=== PATIENT | male | born 2000 | race American Indian/Alaskan Native ===

== ENCOUNTER 2020-08-19 17:40 | Emergency (ER) | payer SELFPAY ==
--- NOTE | 2020-08-19 17:47 | Event Note ---
ED Screening Note ED Screening Note: PAINFUL URINATION This initial assessment/diagnostic orders/clinical plan/treatment(s) is/are subject to change based on patients health status, clinical progression and re- assessment by fellow clinical providers in the ED. Further treatment and workup at subsequent clinical providers discretion. Patient/guardian urged not to elope from the ED as their condition may be serious if not clinically assessed and managed. Initial orders include:
[2020-08-19 17:48] VITALS: BP 147/97
--- NOTE | 2020-08-19 17:56 | Emergency Department Report ---
ED Dysuria HPI - HPI Chief Complaint: Urogenital-Male Stated Complaint: PAINFUL URINE Time Seen by Provider: 08/19/20 17:46 Duration: 3 Days Severity: Mild Symptoms: Dysuria: Yes, Frequency: No, Suprapubic Pain: No, Flank Pain: No, Fever: No, Hematuria: No, Abdominal Pain: No, Previous UTI's: No Other History: 20 yo male comes to ER with dysuria and penile discharge. No fever or chills. No back pain. No abd pain. He is concerned for STI. No testicular pain. No penile lesions. Numeous sexual partners - women - unprotected. ED Review of Systems ROS: Stated complaint: PAINFUL URINE Other details as noted in HPI Comment: All other systems reviewed and negative ED Past Medical Hx - Past Medical History Previous Medical History?: No - Surgical History Past Surgical History?: No - Family History Family history: no significant - Social History Smoking Status: Current Every Day Smoker Substance Use Type: None Dysuria Exam - Exam General: Vital signs noted. No distress. Alert and acting appropriately. Exam: Yes Moist Mucous Membranes, No CVA Tenderness, No Abdominal Tenderness, No Rigidity or Guarding ED Course Vital Signs 08/19/20 17:46 Temperature 98.1 F Pulse Rate 91 H Respiratory 22 Rate Blood Pressure 147/97 O2 Sat by Pulse 100 Oximetry ED Medical Decision Making - Medical Decision Making empiric treatment with rocephin and azithro ua and GC pending dc home with dc plan of care. Pt educated on safe sex. Vital Signs 08/19/20 17:46 Temperature 98.1 F Pulse Rate 91 H Respiratory 22 Rate Blood Pressure 147/97 O2 Sat by Pulse 100 Oximetry - Differential Diagnosis sti Critical care attestation.: If time is entered above; I have spent that time in minutes in the direct care of this critically ill patient, excluding procedure time. ED Disposition Clinical Impression: Concern about STD in male without diagnosis Disposition: DC-01 TO HOME OR SELFCARE Is pt being admited?: No Does the pt Need Aspirin: No Condition: Stable Instructions: Safe Sex Additional Instructions: safe sex Referrals: LEONOR SHRESTHA MD [Staff Physician] - 3-5 Days Time of Disposition: 17:58
[2020-08-19] MEDS ORDERED: AZITHROMYCIN 250 MG TAB PO ONE (17:58)
[2020-08-19] MEDS ORDERED: LIDOCAINE-MPF (1%) 10 MG/1 ML VIAL 5 ML INFILTRATI ONE (17:58)
[2020-08-19 18:26] LABS: Bacteria,Urine 1+ /HPF (Negative); Bilirubin,Urine NEG (Negative); Blood,Urine NEG (Negative); Color,Urine Yellow (Yellow); Mucus,Urine FEW /HPF; Protein,Urine <15 mg/dL mg/dL (Negative)
== END 2020-08-19 18:48 | disposition home or self-care (01) ==
LOC: ED 17:40
DX: R30.0 Dysuria (principal); F17.200 Nicotine dependence, unspecified, uncomplicated; Z20.2 Contact with and (suspected) exposure to infections with a predominantly sexual mode of transmission
CPT/HCPCS: 81001; 87086; 87591; 96372; 99283; J0696

== ENCOUNTER 2021-05-06 09:29 | Emergency (ER) | payer MEDICAID ==
[2021-05-06 09:34] VITALS: BP 131/78
--- NOTE | 2021-05-06 09:51 | Emergency Department Report ---
- General Chief complaint: Urogenital-Male Stated complaint: BUMPS Time Seen by Provider: 05/06/21 09:35 Source: patient Mode of arrival: Ambulatory Limitations: No Limitations - History of Present Illness Initial comments: 21 year old male presents to ED with complaints of rash to genitalia. Patient states he has had this rash off and on x 1 yr. He states he came here about 6 months ago for the rash, but he states that instead of treating for UTI but did not address his rash. He states that the rash sometimes shows up on his face. He states that rash flared up again about 1 week ago. He states that is sometimes itchy but otherwise not painful. He denies any possible triggers. He has not been seen by primary care doctor nor a urologist or car attendant for this rash. He states that the last time he had sex was 2 years ago. He denies any dysuria or penile discharge or hematuria, testicular pain, abdominal pain or back pain. MD complaint: rash -: year(s) (1) - Related Data Allergies Allergy/AdvReac Type Severity Reaction Status Date / Time No Known Allergies Allergy Verified 05/06/21 09:30 Abscess Boil HPI - HPI Chief Complaint: Urogenital-Male Stated Complaint: BUMPS Time Seen by Provider: 05/06/21 09:35 Allergies/Adverse Reactions: Allergies Allergy/AdvReac Type Severity Reaction Status Date / Time No Known Allergies Allergy Verified 05/06/21 09:30 ED Review of Systems ROS: Stated complaint: BUMPS Other details as noted in HPI Comment: All other systems reviewed and negative Constitutional: denies: chills, fever Genitourinary: denies: urgency, dysuria, frequency, hematuria, discharge, testicular pain, testicular mass Skin: rash. denies: lesions, change in color, change in hair/nails, pruritus Neurological: denies: headache, weakness, paresthesias, confusion, abnormal gait, vertigo Psychiatric: denies: anxiety, depression, auditory hallucinations, visual hallucinations, homicidal thoughts, suicidal thoughts Hematological/Lymphatic: denies: easy bleeding, easy bruising, swollen glands ED Past Medical Hx - Past Medical History Previous Medical History?: No - Surgical History Past Surgical History?: No - Social History Smoking Status: Current Every Day Smoker Substance Use Type: None ED Physical Exam - General Limitations: No Limitations General appearance: alert, in no apparent distress - Head Head exam: Present: atraumatic, normocephalic, normal inspection - Eye Eye exam: Present: normal appearance, PERRL, EOMI Pupils: Present: normal accommodation - ENT ENT exam: Present: normal exam, mucous membranes moist, TM's normal bilaterally - Neck Neck exam: Present: normal inspection, full ROM. Absent: meningismus - Cardiovascular Cardiovascular Exam: Present: regular rate, normal rhythm, normal heart sounds - exam: Present: normal inspection, other (Laser Printing Operator present) External exam: Present: lesions (Very small, hyperpigmented, nonspecific bumps noted near the head of the penis. No apparent ulcerations, cellulitis, or any abnormalities noted). Absent: erythema, swelling, lacerations, ecchymosis, bleeding - Extremities Exam Extremities exam: Present: normal inspection - Neurological Exam Neurological exam: Present: alert, oriented X3. Absent: CN II-XII intact, normal gait, abnormal gait, motor sensory deficit - Psychiatric Psychiatric exam: Present: flat affect - Skin Skin exam: Present: other (No apparent rash noted to his face.) ED Course Vital Signs 05/06/21 09:31 Temperature 98.2 F Pulse Rate 81 Respiratory 15 Rate Blood Pressure 131/78 O2 Sat by Pulse 100 Oximetry ED Medical Decision Making - Medical Decision Making Patient with a few tiny nonspecific bumps near the head of the penis. No apparent rash noted to his face. Patient has been having this rash off and on for about a year. Informed patient that it is best if he follows up with a car attendant and neurologist but at this time the bumps are not specific to anything that requires any emergent treatment or testing. Patient stable at time of discharge. Critical care attestation.: If time is entered above; I have spent that time in minutes in the direct care of this critically ill patient, excluding procedure time. ED Disposition Clinical Impression: Rash and nonspecific skin eruption Disposition: 01 HOME / SELF CARE / HOMELESS Is pt being admited?: No Does the pt Need Aspirin: No Condition: Stable Instructions: Rash, Adult, [id number] Additional Instructions: I recommend that you follow-up with the urologist and the car attendant listed on your discharge instructions for further evaluation of this rash. If the rash is itching you can take Benadryl. Return to the ER if worse. Referrals: The lumps and bumps, Doc [Other] - 3-5 Days (Associate Professor Of History) SANTO CATALAN MD [Staff Physician] - 3-5 Days (Urologist) Time of Disposition: 09:51
== END 2021-05-06 10:11 | disposition home or self-care (01) ==
LOC: ED 09:29
DX: R21 Rash and other nonspecific skin eruption (principal); F17.200 Nicotine dependence, unspecified, uncomplicated
CPT/HCPCS: 99282